=== PATIENT | male | born 1955 | race Caucasian/White ===

== ENCOUNTER 2022-02-03 10:06 | Outpatient (CLI) | payer OTHER, SELFPAY ==
[2022-02-03 14:53] LABS: Chloride* 104 mmol/L (96-114)
[2022-02-03 14:54] LABS: Potassium* 4.3 mmol/L (3.6-5.1); Sodium* 139 mmol/L (135-149)
[2022-02-03 14:56] LABS: Creatinine* 0.7 mg/dL (0.5-1.5); Estimated Glomerular Filt Rate 102 ml/min
[2022-02-03 14:57] LABS: Blood Urea Nitrogen* 16 mg/dL (7-30); Calcium* 9.4 mg/dL (8.4-10.6); Carbon Dioxide* 26 mmol/L (20-32); Glucose* 110 mg/dL (60-115)
== END 2022-02-03 10:07 | disposition home or self-care (01) ==
LOC: LONREF 10:07
PROVIDERS: PCP Family Medicine; Visit Provider Family Medicine
DX: Z01.818 Encounter for other preprocedural examination (principal)
CPT/HCPCS: 80048

== ENCOUNTER 2022-09-09 09:40 | Outpatient (CLI) | payer OTHER, SELFPAY | END 2022-09-09 09:41 | disposition home or self-care (01) | LOC: LONREF 09:40 | PROVIDERS: PCP Family Medicine; Visit Provider Nurse Practitioner Family | DX: Z01.818 Encounter for other preprocedural examination (principal) | CPT/HCPCS: 80048 ==

== ENCOUNTER 2023-12-04 11:51 | Outpatient (CLI) | payer OTHER, SELFPAY | END 2023-12-04 11:52 | disposition home or self-care (01) | PROVIDERS: PCP Family Medicine; Visit Provider Family Medicine | DX: E78.5 Hyperlipidemia, unspecified (principal); Z12.5 Encounter for screening for malignant neoplasm of prostate; Z13.228 Encounter for screening for other metabolic disorders | CPT/HCPCS: 80048; 80061; G0103 ==

== ENCOUNTER 2024-06-13 16:10 | Outpatient (CLI) | payer OTHER, SELFPAY | END 2024-06-13 16:11 | disposition home or self-care (01) | PROVIDERS: PCP Family Medicine; Visit Provider Family Medicine | DX: R10.9 Unspecified abdominal pain (principal) | CPT/HCPCS: 80053; 83690 ==

== ENCOUNTER 2024-09-07 10:16 | Outpatient (CLI) | payer OTHER, SELFPAY | END 2024-09-07 10:17 | disposition home or self-care (01) | PROVIDERS: PCP Family Medicine; Visit Provider Family Medicine | DX: Z01.818 Encounter for other preprocedural examination (principal) | CPT/HCPCS: 80048 ==